=== PATIENT | male | born 1950 | race Caucasian/White ===

== ENCOUNTER 2018-09-13 18:35 | Emergency (ER) | payer BC, OTHER ==
--- NOTE | 2018-09-13 19:45 | RAD REPORT ---
EXAM DESCRIPTION: CT - Head Brain Wo Cont - 09/13/2018 7:37 pm CLINICAL HISTORY: DIZZINESS Headache, drowsiness COMPARISON: No comparisons TECHNIQUE: All CT scans are performed using dose optimization technique as appropriate and may inclu de automated exposure control or mA/KV adjustment according to patient size. FINDINGS: No intracranial hemorrhage, hydrocephalus or extra-axial fluid collection.Mild generalized brain atrophy.No areas of brain edema or evidence of midline shift. The paranasal sinuses and mastoids are clear. The calvarium is intact. IMPRESSION: No acute intracranial abnormality.
[2018-09-13 19:48] LABS: Protime INR 0.98
[2018-09-13 19:49] LABS: Absolute Lymphocytes (CBC) 3.2 K/uL (0.7-4.9); Absolute Monocytes 0.6 K/uL (0.1-1.3); Absolute Neutrophil 3.2 K/uL (1.8-8.0); Basophils % 0.4 % (0-1.3); Eosinophils % 2.9 % (0-4.4); Lymphocytes % 44.6 % (15.3-44.8); MPV 8.1 fL (7.6-11.3); Monocytes % 8.6 % (3.3-12.3); RBC Red Blood Cell Count 4.48 M/uL (4.33-5.43)
--- NOTE | 2018-09-13 19:57 | RAD REPORT ---
EXAM DESCRIPTION: RAD - Chest Single View - 09/13/2018 7:44 pm CLINICAL HISTORY: DYSPNEA Chest pain. COMPARISON: Chest Pa And Lat (2 Views) dated 08/22/2018; Chest Single View dated 10/14/2015; CHEST PA AND LAT 2 VIEW dated 06/30/2015 FINDINGS: Portable technique limits examination quality. The lungs are grossly clear. The heart is normal in size. No displaced fractures. IMPRESSION: No acute intrathoracic process suspected.
[2018-09-13] MEDS ORDERED: NA CHLORIDE 0.9% 1,000 ML ONE (20:02)
[2018-09-13 20:03] LABS: ALT/SGPT 44 U/L (12-78); AST/SGOT 27 U/L (15-37); Albumin 3.6 g/dL (3.4-5.0); Alkaline Phosphatase 90 U/L (45-117); BUN Blood Urea Nitrogen 28 mg/dL (7-18); Bicarbonate 25 mmol/L (21-32); Bilirubin Direct < 0.1 mg/dL (0-0.2); Bilirubin Total 0.6 mg/dL (0.2-1.0); Glucose Level 225 mg/dL (74-106); Magnesium 1.9 mg/dL (1.8-2.4); NT PRO-BNP 25 pg/mL (<125); Potassium 4.4 mmol/L (3.5-5.1); Protein, Total 7.5 g/dL (6.4-8.2); Sodium Level 138 mmol/L (136-145); Troponin (Emerg Dept Use Only) < 0.02 ng/mL (0.0-0.045)
[2018-09-13 20:18] LABS: Blood Morphology Comment NOT SEEN (NOT SEEN); Platelet Estimate ADEQ
--- NOTE | 2018-09-13 20:52 | ER ---
Nurse's Notes [facility] Name: Chet Meeks Age: 68 yrs Sex: Male : 1950 Arrival Date: 09/13/2018 Time: 18:40 Bed 24 Private MD: Diagnosis: Dizziness and giddiness;Hyperglycemia, unspecified Presentation: 09/13 18:44 Presenting complaint: Patient states: Recently treated by for upper sg respiratory infection, was prescribed prednisone, completed the treatment but the blood test indicated high blood sugars, prescribed metformin, experiencing N/V and lower abd pain with weight loss. Transition of care: patient was not received from another setting of care. Onset of symptoms was September 13, 2018. Risk Assessment: Do you want to hurt yourself or someone else? Patient reports no desire to harm self or others. Initial Sepsis Screen: Does the patient meet any 2 criteria? No. Patient's initial sepsis screen is negative. Does the patient have a suspected source of infection? Yes: Acute abdominal pain. Care prior to arrival: None. 18:44 Method Of Arrival: Ambulatory sg 18:44 Acuity: MARIEL 3 sg Historical: - Allergies: 18:46 No Known Allergies; sg - PMHx: 18:46 Asthma; COPD; sg - Immunization history:: Adult Immunizations up to date. - Social history:: Smoking status: Patient/guardian denies using tobacco. - Ebola Screening: : Patient negative for fever greater than or equal to 101.5 degrees Fahrenheit, and additional compatible Ebola Virus Disease symptoms Patient denies exposure to infectious person Patient denies travel to an Ebola-affected area in the 21 days before illness onset No symptoms or risks identified at this time. Screenin:13 Abuse screen: Denies threats or abuse. Denies injuries from another. Nutritional mg2 screening: No deficits noted. Tuberculosis screening: No symptoms or risk factors identified. Fall Risk IV access (20 points). Assessment: 19:13 General: Appears in no apparent distress. comfortable, Behavior is calm, cooperative. mg2 Pain: Denies pain. Neuro: Level of Consciousness is awake, alert, obeys commands, Oriented to person, place, time, situation. Neuro: Reports dizziness. Cardiovascular: Capillary refill < 3 seconds Patient's skin is warm and dry. Respiratory: Airway is patent Respiratory effort is even, unlabored, Respiratory pattern is regular, symmetrical. GI: Abdomen is flat, non-distended, Reports nausea. : No signs and/or symptoms were reported regarding the genitourinary system. EENT: No signs and/or symptoms were reported regarding the EENT system. Derm: Skin is intact, is healthy with good turgor, Skin is pink, warm \T\ dry. normal. Musculoskeletal: Circulation, motion, and sensation intact. Capillary refill < 3 seconds. 21:07 Reassessment: Patient appears in no apparent distress at this time. Patient denies pain mg2 at this time. Patient states feeling better. Vital Signs: 18:45 Pulse 76; Resp 19; Temp 97.9; Pulse Ox 100% on R/A; Weight 76.66 kg; Pain 7/10; sg 19:02 BP 142 / 92; Pulse 61; Resp 18; Pulse Ox 100% on R/A; mg2 20:30 BP 131 / 82; Pulse 59; Resp 18; Pulse Ox 100% on R/A; Pain 0/10; mg2 ED Course: 18:40 Patient arrived in ED. mr 18:44 Devan Foley PA is PHCP. jr8 18:44 Gumaro Oconnell MD is Attending Physician. jr8 18:45 Triage completed. sg 18:45 Arm band placed on. sg 18:49 Manish Mireles, DOMENIC is Primary Nurse. mg2 19:13 No provider procedures requiring assistance completed. Inserted saline lock: 20 gauge mg2 in right antecubital area, using aseptic technique. Blood collected. 19:14 Pulse ox on. NIBP on. Door closed. Warm blanket given. mg2 19:15 Patient has correct armband on for positive identification. Bed in low position. Side mg2 rails up X 1. 19:[address] ls3 19:36 CT Head Brain wo Cont In Process Unspecified. EDMS 19:42 XRAY Chest (1 view) In Process Unspecified. EDMS 21:07 IV discontinued, intact, bleeding controlled, No redness/swelling at site. Pressure mg2 dressing applied. Administered Medications: 20:13 Drug: NS 0.9% 1000 ml Route: IV; Rate: 1000 ml; Site: right antecubital; mg2 21:09 Follow up: Response: No adverse reaction; IV Status: Completed infusion mg2 Point of Care Testing: Blood Glucose: 19:28 Blood Glucose: 215 mg/dL; mg2 21:07 Blood Glucose: 174 mg/dL; mg2 Ranges: Outcome: 20:51 Discharge ordered by MD. boo 21:07 Discharged to home ambulatory, with family. mg2 21:07 Condition: stable 21:07 Discharge instructions given to patient, family, Instructed on discharge instructions, follow up and referral plans. medication usage, Demonstrated understanding of instructions, follow-up care, medications, Prescriptions given X 1. 21:10 Patient left the ED. mg2 Signatures: Dispatcher [employer] EDMS Joaquin Yang RN RN sg Elsie Helms mr Devan Foley PA PA jr8 Manish Mireles RN RN mg2 Nayeli Aguilar ls3 Corrections: (The following items were deleted from the chart) 18:46 18:46 General: sg sg
--- NOTE | 2018-09-13 20:52 | EDPHYS ---
Physician Documentation [facility] Name: Chet Meeks Age: 68 yrs Sex: Male : 1950 Arrival Date: 09/13/2018 Time: 18:40 Bed 24 Private MD: ED Physician Gumaro Oconnell HPI: 09/13 19:00 This 68 yrs old Male presents to ER via Ambulatory with complaints of jr8 Dizziness, Nausea, Abdominal Pain. 19:00 The patient presents with dizziness, lightheadedness. Onset: The symptoms/episode jr8 began/occurred gradually, 1 week(s) ago. Context:. Modifying factors: the symptoms are aggravated by movement of head, standing up, changing position. Associated signs and symptoms: Pertinent positives: nausea, Pertinent negatives: abdominal pain, blurred vision, chest pain, confusion, near-syncope, numbness, palpitations, tingling, vomiting. Severity of symptoms: Pain is currently a 0 / 10. 19:00 The patient has been recently seen by a physician: Dr. Avila. Patient presents to [facility] the ED today with the complaint of dizziness with mild nausea and diarrhea for one week. 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 Was placed at that time on 20 mg Prednisone daily. He went back to the doctor for 20 lbs weight loss over the month and diagnosed with diabetes. He was taken off the Prednisone without a taper one week ago and placed on Metformin. The patient was also instructed to cut excess sugar from his diet. Since making these changes the patient has had intermittent dizziness worse with mvt, increased thirst, and a dry mouth. Historical: - Allergies: 18:46 No Known Allergies; sg - PMHx: 18:46 Asthma; COPD; sg - Immunization history:: Adult Immunizations up to date. - Social history:: Smoking status: Patient/guardian denies using tobacco. - Ebola Screening: : Patient negative for fever greater than or equal to 101.5 degrees Fahrenheit, and additional compatible Ebola Virus Disease symptoms Patient denies exposure to infectious person Patient denies travel to an Ebola-affected area in the 21 days before illness onset No symptoms or risks identified at this time. ROS: 19:00 Constitutional: Negative for fever, chills, and weight loss, Cardiovascular: Negative jr8 for chest pain, palpitations, and edema, Respiratory: Negative for shortness of breath, cough, wheezing, and pleuritic chest pain. 19:00 : Negative for injury, bleeding, discharge, and swelling, MS/Extremity: Negative for injury and deformity, Skin: Negative for injury, rash, and discoloration, Neuro: Negative for headache, weakness, numbness, tingling, and seizure. 19:00 Abdomen/GI: Positive for nausea, diarrhea, Negative for abdominal pain, constipation, abdominal distension. 19:00 Endocrine: Positive for polydipsia, polyphagia, polyuria, weight loss. Exam: 19:00 Constitutional: This is a well developed, well nourished patient who is awake, alert, jr8 and in no acute distress. Eyes: Pupils equal round and reactive to light, extra-ocular motions intact. Lids and lashes normal. Conjunctiva and sclera are non-icteric and not injected. Cornea within normal limits. Periorbital areas with no swelling, redness, or edema. ENT: Nares patent. No nasal discharge, no septal abnormalities noted. Tympanic membranes are normal and external auditory canals are clear. Oropharynx with no redness, swelling, or masses, exudates, or evidence of obstruction, uvula midline. Mucous membranes moist. Cardiovascular: Regular rate and rhythm with a normal S1 and S2. No gallops, murmurs, or rubs. Normal PMI, no JVD. No pulse deficits. Respiratory: Lungs have equal breath sounds bilaterally, clear to auscultation and percussion. No rales, rhonchi or wheezes noted. No increased work of breathing, no retractions or nasal flaring. Abdomen/GI: Soft, non-tender, with normal bowel sounds. No distension or tympany. No guarding or rebound. No evidence of tenderness throughout. Skin: Warm, dry with normal turgor. Normal color with no rashes, no lesions, and no evidence of cellulitis. MS/ Extremity: Pulses equal, no cyanosis. Neurovascular intact. Full, normal range of motion. Neuro: Awake and alert, GCS 15, oriented to person, place, time, and situation. Cranial nerves II-XII grossly intact. Motor strength 5/5 in all extremities. Sensory grossly intact. Cerebellar exam normal. Normal gait. Horizontal nystagmus noted with eye mvt. 19:30 ECG was reviewed by the Attending Physician. jr8 Vital Signs: 18:45 Pulse 76; Resp 19; Temp 97.9; Pulse Ox 100% on R/A; Weight 76.66 kg; Pain 7/10; sg 19:02 BP 142 / 92; Pulse 61; Resp 18; Pulse Ox 100% on R/A; mg2 20:30 BP 131 / 82; Pulse 59; Resp 18; Pulse Ox 100% on R/A; Pain 0/10; mg2 MDM: 18:45 Patient medically screened. jr8 20:45 Differential diagnosis: cardiac arrhythmia, CVA, idiopathic dizziness, vertigo, adrenal jr8 insufficiency. Data reviewed: vital signs, nurses notes, lab test result(s), cardiac enzymes, CBC, electrolytes, EKG, and as a result, I will discharge patient. ED course: Spoke with patient regarding results, assessment findings, EKG. Patient has no complaints at this time and is comfortable. Educated patient on medication side effects and diabetic diet. Encouraged patient to follow up with a PCP to adjust diabetes medication and continue with diabetes education. Patient agrees with discharge plan. 09/13 19:22 Order name: Basic Metabolic Panel; Complete Time: 20:09/13 19:22 Order name: CBC with Diff; Complete Time: 20:31 09/13 19:22 Order name: LFT's; Complete Time: 20:09/13 19:22 Order name: Magnesium; Complete Time: 20:09/13 19:22 Order name: NT PRO-BNP; Complete Time: 20: 09/13 19:22 Order name: PT-INR; Complete Time: 20:09/13 19:22 Order name: Troponin (emerg Dept Use Only); Complete Time: 20:09/13 19:22 Order name: XRAY Chest (1 view); Complete Time: 20:09 09/13 19:22 Order name: EKG; Complete Time: 19:22 09/13 19:22 Order name: Cardiac monitoring; Complete Time: 19:28 09/13 19:22 Order name: EKG - Nurse/Tech; Complete Time: 19:28 09/13 19:23 Order name: CT Head Brain wo Cont; Complete Time: 19:46 09/13 19:50 Order name: Manual Differential; Complete Time: 20:31 EDDE 09/13 19:22 Order name: IV Saline Lock; Complete Time: : jr8 09/13 19:22 Order name: Labs collected and sent; Complete Time: : jr8 09/13 19:22 Order name: O2 Per Protocol; Complete Time: : jr8 09/13 19:22 Order name: O2 Sat Monitoring; Complete Time: : jr8 EC:30 Rate is 57 beats/min. Rhythm is regular. PA interval is normal. QRS interval is normal. jr8 QT interval is normal. No ST changes noted. Clinical impression: Sinus bradycardia. Interpreted by me. Reviewed by me. Administered Medications: 20:13 Drug: NS 0.9% 1000 ml Route: IV; Rate: 1000 ml; Site: right antecubital; mg2 21:09 Follow up: Response: No adverse reaction; IV Status: Completed infusion mg2 Point of Care Testing: Blood Glucose: : Blood Glucose: 215 mg/dL; mg2 21: Blood Glucose: 174 mg/dL; mg2 Ranges: Critical Glucose Levels:Adult <50 mg/dl or >400 mg/dl <40 mg/dl or >180 mg/dl Disposition: 09/13/18 20:51 Discharged to Home. Impression: Dizziness and giddiness, Hyperglycemia, unspecified. - Condition is Stable. - Discharge Instructions: Basic Carbohydrate Counting for Diabetes Mellitus, Dizziness, Hyperglycemia, Blood Glucose Monitoring, Adult, Diabetes and Exercise. - Prescriptions for metformin 500 mg Oral tablet extended release 24 hr - take 1 tablet by ORAL route 2 times per day with the evening meal; 30 tablet. - Medication Reconciliation Form, Thank You Letter, Antibiotic Education, Prescription Opioid Use form. - Follow up: Private Physician; When: 5 - 6 days; Reason: Recheck today's complaints, Continuance of care, Re-evaluation by your physician. - Problem is new. - Symptoms are resolved. Addendum: 09/16/2018 00:15 Co-signature as Attending Physician, Gumaro Oconnell MD. g s Signatures: Dispatcher [employer] EDDE Joaquin Yang RN RN sg Alaina, Devan, PA PA [facility] Gumaro Oconnell MD MD Manish Mireles RN RN mg2 Corrections: (The following items were deleted from the chart) 09/13 21:10 20:51 09/13/2018 20:51 Discharged to Home. Impression: Dizziness and giddiness; mg2 Hyperglycemia, unspecified. Condition is Stable. Forms are Medication Reconciliation Form, Thank You Letter, Antibiotic Education, Prescription Opioid Use. Follow up: Private Physician; When: 5 - 6 days; Reason: Recheck today's complaints, Continuance of care, Re-evaluation by your physician. Problem is new. Symptoms are resolved. jr8
[2018-09-13 21:15] VITALS: TEMP 97.9; O2SAT 100
[2018-09-13 21:18] VITALS: BP 131/82
--- NOTE | 2018-09-14 06:12 | EKG ---
Test Date: 2018-09-13 Test Time: 19:30:48 Toll Line Mechanic: RIANNA MEASUREMENT RESULTS: Intervals: Rate: 57 MS: 160 QRSD: 80 QT: 388 QTc: 377 [place]: P: 12 MS: 160 QRS: -2 T: 8 INTERPRETIVE STATEMENTS: Sinus bradycardia with sinus arrhythmia Inferior infarct, age undetermined Abnormal ECG Compared to ECG 10/14/2015 14:44:53 Myocardial infarct finding now present Sinus rhythm no longer present Electronically Signed On 09-14-18 06:11:57 CDT by Jony Boo
== END 2018-09-13 21:10 | disposition home or self-care (01) ==
LOC: ER 18:35 → SUPCPDRO 18:35 → ER 21:10
DX: E11.65 Type 2 diabetes mellitus with hyperglycemia (principal); J44.9 Chronic obstructive pulmonary disease, unspecified
CPT/HCPCS: 36415; 70450; 71045; 80048; 80076; 82962; 83735; 83880; 84484; 85025; 85610; 93005; 96360; 99284; J7030

== ENCOUNTER 2022-12-06 16:46 | Emergency (ER) | payer BC, OTHER ==
--- OUTSIDE RECORDS SUMMARY | 2022-12-06 16:49 | XMS REPORT | Continuity of Care Document ---
:1950 Author Organization [facility] t Address [address] [place] [address] Care Team Providers Name Role Phone YANN Attending Clinician Unavailable YANN Admitting Clinician Unavailable Problems This patient has no known problems. Allergies, Adverse Reactions, Alerts This patient has no known allergies or adverse reactions. Medications This patient has no known medications. Procedures This patient has no known procedures. Encounters Start End Encounter Admission Attending Care Care Encounter Source Date/Time Date/Time Type Type Clinicians Facility Department ID 2021-12-10 2021-12-10 Outpatient DOMINIC JERNIGAN [facility] [id number] 01:33:00 01:33:00 _CJ [id number] [facility] Program Results This patient has no known results.
[2022-12-06] MEDS ORDERED: MECLIZINE HCL 12.5 MG TAB ONE (17:23)
[2022-12-06] MEDS ORDERED: ONDANSETRON 4 MG/2 ML VIAL ONE (17:23)
[2022-12-06] MEDS ORDERED: NA CHLORIDE 0.9% 1,000 ML ONE (17:23)
[2022-12-06 17:42] LABS: Lymphocytes % 35.4 % (15.3-44.8); MCV 94.7 fL (80-100); MPV 7.3 fL (7.6-11.3); RBC Red Blood Cell Count 4.43 M/uL (4.33-5.43)
[2022-12-06 17:59] LABS: Albumin 3.9 g/dL (3.4-5.0); Bilirubin Direct 0.1 mg/dL (0-0.2); Bilirubin Indirect, Calculated 0.5 mg/dL (0.2-0.8); Bilirubin Total 0.6 mg/dL (0.2-1.0); Magnesium 2.4 mg/dL (1.6-2.4); Potassium 4.1 mEq/L (3.5-5.1); Protein, Total 7.8 g/dL (6.4-8.2); Troponin High Sensitivity 4.5 pg/mL (<58.9)
--- NOTE | 2022-12-06 18:25 | RAD REPORT ---
EXAM DESCRIPTION: CT - Head Brain Wo Cont - 12/06/2022 6:01 pm CLINICAL HISTORY: dizziness, vertigo COMPARISON: Head Brain Wo Cont dated 09/13/2018 TECHNIQUE: Noncontrast head CT images were obtained without IV contrast. Multiplanar reformats were generated and reviewed. All CT scans are performed using dose optimization technique as appropriate and may include automated exposure control or mA/KV adjustment according to patient size. FINDINGS: No intracranial hemorrhage, mass, or edema. Midline structures are unremarkable. Normal ventricular caliber for age. Massey-white matter differentiation is preserved, without evidence of acute infarct. No abnormal extra- axial fluid collections. Mastoid air cells are well aerated. Up to moderate scattered paranasal sinus mucosal thickening. No acute bony findings. IMPRESSION: No evidence of an acute intracranial process. Up to moderate scattered paranasal sinus inflammatory mucosal thickening.
--- NOTE | 2022-12-06 18:33 | ER ---
Nurse's Notes [facility] Name: Chet Meeks Age: 72 yrs Sex: Male : 1950 Arrival Date: 12/06/2022 Time: 16:46 Bed 15 Private MD: Diagnosis: Other peripheral vertigo;Other acute sinusitis Presentation: 12/06 16:54 Chief complaint: Patient states: he has been dizzy since yesterday, but hasn't been ap3 feeling well for a few days. patient denies NVD. Coronavirus screen: At this time, the client does not indicate any symptoms associated with coronavirus-19. Ebola Screen: No symptoms or risks identified at this time. Initial Sepsis Screen: Does the patient meet any 2 criteria? No. Patient's initial sepsis screen is negative. Does the patient have a suspected source of infection? No. Patient's initial sepsis screen is negative. Risk Assessment: Do you want to hurt yourself or someone else? Patient reports no desire to harm self or others. Onset of symptoms was December 05, 2022. 16:54 Method Of Arrival: Ambulatory ap3 16:57 Acuity: MARIEL 3 ap3 Triage Assessment: 16:56 General: Appears in no apparent distress. Behavior is calm, cooperative. Pain: Denies ap3 pain. Neuro: Reports dizziness. Cardiovascular: Patient's skin is warm and dry. Respiratory: Airway is patent Respiratory effort is even, unlabored, Respiratory pattern is regular, symmetrical. Historical: - Allergies: 16:56 No Known Allergies; ap3 - Home Meds: 16:56 None [Active]; ap3 - PMHx: 16:56 Asthma; COPD; ap3 - Immunization history:: Client reports receiving the 2nd dose of the Covid vaccine. - Social history:: Smoking status: Patient denies any tobacco usage or history of. Screenin:57 Abuse screen: Denies threats or abuse. Nutritional screening: No deficits noted. ap3 Tuberculosis screening: No symptoms or risk factors identified. 17:00 [facility] ED Fall Risk Assessment (Adult) History of falling in the last 3 months, ko1 including since admission No falls in past 3 months (0 pts) Confusion or Disorientation No (0 pts) Intoxicated or Sedated No (0 pts) Impaired Gait No (0 pts) Mobility Assist Device Used No (0 pt) Altered Elimination No (0 pt) Score/Fall Risk Level 0 - 2 = Low Risk Oriented to surroundings, Maintained a safe environment, Educated pt \T\ family on fall prevention, incl call for assistance when getting out of bed, Assessed \T\ reinforced patient's understanding of fall precautions, Provided non-skid footwear, Hourly rounding (assess needs \T\ fall precautionary measures) done, Used ambulatory aids as needed (educated on \T\ assisted with), Used gait belt as appropriate. Assessment: 17:00 General: Appears in no apparent distress. comfortable, Behavior is calm, cooperative, ko1 appropriate for age. Pain: Denies pain. Neuro: Reports dizziness. Cardiovascular: Reports lightheadedness, syncope. Respiratory: No deficits noted. GI: No deficits noted. : No deficits noted. EENT: No deficits noted. Derm: No deficits noted. Musculoskeletal: No deficits noted. Vital Signs: 16:54 Pulse 62; Resp 17; Temp 97.1; Pulse Ox 100% ; Weight 77.11 kg; Height 5 ft. 10 in. ; ap3 16:56 BP 175 / 95; ap3 17:52 BP 148 / 91; Pulse 64; Resp 18; Pulse Ox 99% ; ko1 18:25 BP 156 / 76; Pulse 68; Resp 18; Pulse Ox 99% ; ko1 16:54 Body Mass Index 24.39 (77.11 kg, 177.8 cm) ap3 ED Course: 16:52 Patient arrived in ED. am2 16:53 Remi Lao MD is Attending Physician. jr11 16:57 Triage completed. ap3 16:57 Arm band placed on left wrist. ap3 16:58 Hermelinda Kinney, DOMENIC is Primary Nurse. ko1 17:00 Patient has correct armband on for positive identification. Bed in low position. Call ko1 light in reach. Side rails up X 1. Provided Education on: labs, meds. Client placed on continuous cardiac and pulse oximetry monitoring. NIBP monitoring applied. phototypesetting equipment monitor on. Door closed. Noise minimized. Warm blanket given. 17:30 Inserted saline lock: 20 gauge in right antecubital area, using aseptic technique. ko1 Blood collected. 17:34 Basic Metabolic Panel Sent. ko1 17:34 CBC with Diff Sent. ko1 17:34 LFT's Sent. ko1 17:34 Magnesium Sent. ko1 17:34 NT PRO-BNP Sent. ko1 17:34 Troponin HS Sent. ko1 18:02 CT Head Brain wo Cont In Process Unspecified. EDMS 18:31 Michelle Cai MD is Referral Physician. jr11 18:58 No provider procedures requiring assistance completed. IV discontinued, intact, ko1 bleeding controlled, No redness/swelling at site. Pressure dressing applied. 19:02 IV discontinued, intact, bleeding controlled, No redness/swelling at site. Pressure rs5 dressing applied. Administered Medications: 17:34 Drug: NS 0.9% IV 1000 ml Route: IV; Rate: 1 bolus; Site: right antecubital; ko1 17:34 Drug: Ondansetron IVP 4 mg Route: IVP; Site: right antecubital; ko1 17:34 Drug: Meclizine PO 50 mg Route: PO; ko1 Medication: 18:58 VIS not applicable for this client. ko1 Outcome: 18:32 Discharge ordered by MD. jr11 18:58 Discharged to home ambulatory, with family. ko1 18:58 Condition: stable 18:58 Discharge instructions given to patient, family, Instructed on discharge instructions, follow up and referral plans. medication usage, Demonstrated understanding of instructions, follow-up care, medications, Prescriptions given X 4. 19:04 Patient left the ED. ko1 Signatures: Dispatcher [employer] EDMS Mei Payne Amanda RN RN [id number] Remi Lao MD MD jr11 Hermelinda Kinney RN RN ko1 Naun Rascon rs5
--- NOTE | 2022-12-06 18:33 | EDPHYS ---
Physician Documentation [facility] Name: Chet Meeks Age: 72 yrs Sex: Male : 1950 Arrival Date: 12/06/2022 Time: 16:46 Bed 15 Private MD: ED Physician Remi Lao HPI: 12/06 17:33 Patient is a 72-year-old with history of COPD here for dizziness that started last jr11 night. Patient states that every time he moves his head quickly, he feels like the room spinning, no ataxia, discontinued when he woke up this morning. Patient had prior episode of this in the past, was never diagnosed with vertigo, resolved on its own. No nausea no vomiting, review of system otherwise negative. No focal weakness anywhere.. Historical: - Allergies: 16:56 No Known Allergies; ap3 - Home Meds: 16:56 None [Active]; ap3 - PMHx: 16:56 Asthma; COPD; ap3 - Immunization history:: Client reports receiving the 2nd dose of the Covid vaccine. - Social history:: Smoking status: Patient denies any tobacco usage or history of. ROS: 17:33 Constitutional: Negative for fever, chills Eyes: Negative for injury, pain, redness, jr11 and discharge, Cardiovascular: Negative for chest pain, palpitations, and edema, Respiratory: Negative for shortness of breath, cough Abdomen/GI: Negative for abdominal pain, nausea, vomiting Back: Negative for injury and pain, MS/Extremity: Negative for injury and deformity, Neuro: Negative for headache, weakness, numbness, tingling, and seizure. Exam: 17:33 Constitutional: This is a well developed, well nourished patient who is awake, alert, jr11 and in no acute distress. Head/Face: Normocephalic, atraumatic. Eyes: Extra-ocular motions intact. Lids and lashes normal. Conjunctiva and sclera are non-icteric and not injected. Cornea within normal limits. Periorbital areas with no swelling, redness, or edema. Chest/axilla: Normal chest wall appearance and motion. Nontender with no deformity. No lesions are appreciated. Respiratory: Lungs have equal breath sounds bilaterally, clear to auscultation and percussion. No rales, rhonchi or wheezes noted. No increased work of breathing, no retractions or nasal flaring. Abdomen/GI: Soft, non-tender, with normal bowel sounds. No distension or tympany. No guarding or rebound. No evidence of tenderness throughout. MS/ Extremity: Pulses equal, no cyanosis. Neurovascular intact. Full, normal range of motion. Neuro: Awake and alert, GCS 15, oriented to person, place, time, and situation. No gross motor or sensory deficits. Hints exam negative, NIH stroke scale is equal to 0. Vital Signs: 16:54 Pulse 62; Resp 17; Temp 97.1; Pulse Ox 100% ; Weight 77.11 kg; Height 5 ft. 10 in. ; ap3 16:56 BP 175 / 95; ap3 17:52 BP 148 / 91; Pulse 64; Resp 18; Pulse Ox 99% ; ko1 18:25 BP 156 / 76; Pulse 68; Resp 18; Pulse Ox 99% ; ko1 16:54 Body Mass Index 24.39 (77.11 kg, 177.8 cm) ap3 MDM: 17:07 Patient medically screened. [facility] 17:33 Differential diagnosis: cardiac arrhythmia, generalized weakness, hypovolemia, vertigo. [facility] Data reviewed: vital signs, nurses notes. 18:31 ED course: CT head with no evidence of bleed to my read. Will treat sinusitis. . 12/06 17:09 Order name: Basic Metabolic Panel; Complete Time: 18:04 12/06 17:09 Order name: CBC with Diff; Complete Time: 17:49 12/06 17:09 Order name: LFT's; Complete Time: 18:04 12/06 17:09 Order name: Magnesium; Complete Time: 18:04 12/06 17:09 Order name: NT PRO-BNP; Complete Time: 18:04 12/06 17:09 Order name: Troponin HS; Complete Time: 18:04 12/06 17:09 Order name: CT Head Brain wo Cont; Complete Time: 18:30 12/06 17:09 Order name: EKG; Complete Time: 17:09 12/06 17:09 Order name: Cardiac monitoring; Complete Time: 17:10 12/06 17:09 Order name: EKG - Nurse/Tech; Complete Time: 17:34 12/06 17:09 Order name: IV Saline Lock; Complete Time: 17:34 12/06 17:09 Order name: Labs collected and sent; Complete Time: 12/06 17:09 Order name: O2 Per Protocol; Complete Time: 17:12/06 17:09 Order name: O2 Sat Monitoring; Complete Time: 17: Administered Medications: :34 Drug: NS 0.9% IV 1000 ml Route: IV; Rate: 1 bolus; Site: right antecubital; ko1 17:34 Drug: Ondansetron IVP 4 mg Route: IVP; Site: right antecubital; ko1 17:34 Drug: Meclizine PO 50 mg Route: PO; ko1 Disposition Summary: 12/06/22 18:32 Discharge Ordered Location: Home jr11 Condition: Fair jr11 Diagnosis - Other peripheral vertigo jr11 - Other acute sinusitis jr11 Followup: [facility] - With: Michelle Cai MD - When: 2 - 3 days - Reason: Re-evaluation by your physician Discharge Instructions: - Discharge Summary Sheet jr11 - Sinusitis, Adult jr11 - Vertigo [facility] Forms: - Medication Reconciliation Form jr11 - Thank You Letter jr11 - Antibiotic Education jr11 - Prescription Opioid Use jr11 - Patient Portal Instructions.[email or web address] [id number] Prescriptions: - Augmentin 875-125 mg Oral Tablet - take 1 tablet by ORAL route every 12 hours for 10 days; 20 tablet; Refills: 0, jr11 Product Selection Permitted - Meclizine 25 mg Oral Tablet - take 1 tablet by ORAL route every 8 hours As needed prn dizziness; 30 tablet; jr11 Refills: 0, Product Selection Permitted - Protonix 40 mg Oral Tablet - take 1 tablet by ORAL route once daily; 30 tablet; Refills: 0, Product jr11 Selection Permitted - Zofran 4 mg Oral Tablet - take 1 tablet by ORAL route every 12 hours As needed; 20 tablet; Refills: 0, jr11 Product Selection Permitted Signatures: Dispatcher [employer] Mei Gudino RN RN ap3 Remi Lao MD MD jr11 Hermelinda Kinney RN RN ko1
[2022-12-06 19:39] VITALS: TEMP 97.1
[2022-12-06 19:41] VITALS: O2SAT 99
[2022-12-06 19:42] VITALS: BP 156/76
--- NOTE | 2022-12-06 20:17 | EKG ---
Test Date: 2022-12-06 Test Time: 17:39:11 Paving Block Cutter: [place] MEASUREMENT RESULTS: Intervals: Rate: 54 IN: 176 QRSD: 74 QT: 438 QTc: 415 [place]: P: 49 IN: 176 QRS: 42 T: 31 INTERPRETIVE STATEMENTS: Sinus bradycardia Otherwise normal ECG Compared to ECG 09/13/2018 19:30:48 Sinus arrhythmia no longer present Myocardial infarct finding no longer present Electronically Signed On 12-06-22 20:17:09 CDT by Zi Fontanez
== END 2022-12-06 19:04 | disposition home or self-care (01) ==
LOC: ER 16:46
DX: H81.399 Other peripheral vertigo, unspecified ear (principal); J01.80 Other acute sinusitis; J44.9 Chronic obstructive pulmonary disease, unspecified
CPT/HCPCS: 93005; 85025; 80048; 36415; 83735; 80076; 84484; 83880; 70450; 96374; 99285; J8597; J2405; J7030